=== PATIENT | female | born 1950 | race Caucasian/White ===

== ENCOUNTER 2017-06-13 14:31 | Emergency (ER) | payer MEDICARE ==
[2017-06-13 14:43] VITALS: BP 146/79; PULSE 82; RESP 18; TEMP 97.1
--- NOTE | 2017-06-13 14:56 | ED ---
General Adult HPI - General Chief complaint: Weakness Stated complaint: Weakness Time Seen by Provider: 06/13/17 14:35 Source: patient, EMS, RN notes reviewed Mode of arrival: EMS Limitations: physical limitation - History of Present Illness Initial comments: This is a 67-year-old female who comes in emergency department stating she has spinal stenosis. Patient states her weakness of both of her legs his been ongoing for the last 2 years and is slowly getting worse. Patient states this morning she slid out of bed and was unable to get up so she called the ambulance. Patient states her daughter wanted her to come to the hospital so she did. Patient states she has no pain she was not injured she states her weakness is no worse than it was for the last few months. Patient denies any specific numbness or focal weakness patient denies any swelling to the legs or erythema to the leg. Patient denies any chest pain palpitations difficulty breathing or shortness of breath. Patient denies any abdominal pain. Patient denies any headache patient denies lightheadedness dizziness or near syncopal episode - Related Data Home Medications Medication Instructions Recorded Confirmed Allopurinol [Zyloprim] 50 mg PO BID 06/13/17 06/13/17 Aspirin 81 mg PO DAILY 06/13/17 06/13/17 Calcium Carbonate [Calcium] 1,200 mg PO DAILY 06/13/17 06/13/17 Cholecalciferol [Vitamin D3] 1,000 unit PO DAILY 06/13/17 06/13/17 Cyanocobalamin (Vitamin B-12) 1,000 mcg PO DAILY 06/13/17 06/13/17 [Vitamin B-12] Ferrous Sulfate [Feosol] 325 mg PO DAILY 06/13/17 06/13/17 Gabapentin [Neurontin] 100 mg PO TID 06/13/17 06/13/17 Glimepiride [Amaryl] 1 mg PO BID 06/13/17 06/13/17 Imipramine Pamoate [Tofranil Pm] 75 mg PO HS 06/13/17 06/13/17 Insulin Glargine [Lantus] 20 unit SQ BID 06/13/17 06/13/17 Levothyroxine Sodium [Synthroid] 200 mcg PO QAM 06/13/17 06/13/17 Magnesium Gluconate [Magonate] 500 mg PO DAILY 06/13/17 06/13/17 Meloxicam 7.5 mg PO BID 06/13/17 06/13/17 Multivitamin/Iron/Folic Acid 1 tab PO DAILY 06/13/17 06/13/17 [Centrum Women Tablet] Pravastatin Sodium [Pravachol] 40 mg PO DAILY 06/13/17 06/13/17 Triamterene/Hydrochlorothiazid 0.5 tab PO DAILY 06/13/17 06/13/17 [Triamterene-Hctz 37.5-25 mg Tb] Verapamil HCl [Verapamil ER] 240 mg PO DAILY 06/13/17 06/13/17 metFORMIN HCL [Glucophage] 500 mg PO DAILY 06/13/17 06/13/17 Allergies Allergy/AdvReac Type Severity Reaction Status Date / Time No Known Allergies Allergy Verified 06/13/17 14:52 Review of Systems ROS Statement: Those systems with pertinent positive or pertinent negative responses have been documented in the HPI. ROS Other: All systems not noted in ROS Statement are negative. Past Medical History Additional Past Surgical History / Comment(s): cholycystectomy 1996 Past Psychological History: No Psychological Hx Reported Smoking Status: Never smoker Past Alcohol Use History: None Reported Past Drug Use History: None Reported General Exam - General Exam Comments Initial Comments: GENERAL: Patient is well-developed and well-nourished. Patient is nontoxic and well- hydrated and is in no acute distress. ENT: Neck is soft and supple. No significant lymphadenopathy is noted. Oropharynx is clear. Moist mucous membranes. Neck has full range of motion without eliciting any pain. EYES: The sclera were anicteric and conjunctiva were pink and moist. Extraocular movements were intact and pupils were equal round and reactive to light. Eyelids were unremarkable. PULMONARY: Unlabored respirations. Good breath sounds bilaterally. No audible rales rhonchi or wheezing was noted. CARDIOVASCULAR: There is a regular rate and rhythm without any murmurs gallops or rubs. ABDOMEN: Soft and nontender with normal bowel sounds. SKIN: Skin is clear with no lesions or rashes and otherwise unremarkable. NEUROLOGIC: Patient is alert and oriented x3. Cranial nerves II through XII are grossly intact. Motor and sensory are also intact. Normal speech, volume and content. Symmetrical smile. MUSCULOSKELETAL: Normal extremities with adequate strength and full range of motion. LYMPHATICS: No significant lymphadenopathy is noted PSYCHIATRIC: Normal psychiatric evaluation. Limitations: physical limitation Course Vital Signs 06/13/17 14:34 Temperature 97.1 F L Pulse Rate 82 Respiratory 18 Rate Blood Pressure 146/79 O2 Sat by Pulse 94 L Oximetry Medical Decision Making - Medical Decision Making I went back in the room to talk to the patient again about her weakness she did not want any workup she did not want any pain meds and she states again the weakness has not changed recently. Patient states she will follow-up with her primary medical care doctor Disposition Clinical Impression: History of spinal stenosis, Weakness of both legs Disposition: HOME SELF-CARE Condition: Good Instructions: Weakness (ED) Referrals: Val Mckenna MD [Primary Care Provider] - 1-2 days Time of Disposition: 14:56
== END 2017-06-13 15:35 | disposition home or self-care (01) ==
LOC: EC 14:31
DX: R53.1 Weakness (principal); Z87.39 Personal history of other diseases of the musculoskeletal system and connective tissue; Z79.4 Long term (current) use of insulin; Z79.1 Long term (current) use of non-steroidal anti-inflammatories (NSAID); Z79.82 Long term (current) use of aspirin; Z79.899 Other long term (current) drug therapy
CPT/HCPCS: 93005; 99285